=== PATIENT | female | born 1995 | race African-American/Black ===

== ENCOUNTER 2016-12-01 20:03 | Emergency (ER) | payer OTHER ==
[~2016-12-01] VITALS: Ht 160 cm; Wt 68.0 kg
[2016-12-01 20:05] VITALS: Ht 160 cm; Wt 68.0 kg
[2016-12-01] MEDS ORDERED: HYDROCODONE/APAP (5/325) TAB PO ONE (21:30)
[2016-12-01] MEDS ORDERED: IBUP800T25 PO (21:52)
[2016-12-01] MEDS ORDERED: AMO500 PO (21:52)
[2016-12-01] MEDS ORDERED: ACET500C5 PO (21:53)
--- NOTE | 2016-12-01 21:59 | ERD ---
ER Documentation Chief Complaint Date/Time DATE: 12/01/16 TIME: 21:56 Chief Complaint headache x 2 days HPI This is a 21-year-old female who presents the emergency department today complaining of headache, sore throat, body aches, fever for the past 2 days. States she took 2 Tylenol last night and one this morning. 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 Medications Home Meds Active Scripts Oseltamivir Phosphate* (Tamiflu*) 75 Mg Capsule, 75 MG PO BID for 5 Days, CAP Prov:MAGNUS CUEVAS-C 12/01/16 Acetaminophen* (Tylophen*) 500 Mg Capsule, 1 CAP PO Q6H Y for PAIN AND OR ELEVATED TEMP, #30 CAP Prov:MAGNUS CUEVASC 12/01/16 Ibuprofen* (Motrin*) 800 Mg Tab, 800 MG PO Q6, #30 TAB Prov:MAGNUS CUEVASC 12/01/16 Amoxicillin* (Amoxicillin*) 500 Mg Cap, 500 MG PO TID for 10 Days, CAP Prov:MAGNUS CUEVASC 12/01/16 Allergies Allergies: Coded Allergies: No Known Allergy (Unverified , 12/01/16) PMhx/Soc Medical and Surgical Hx: pt denies Medical Hx, pt denies Surgical Hx Hx Alcohol Use: No Hx Substance Use: No Hx Tobacco Use: No Smoking Status: Never smoker Physical Exam Vitals Vital Signs Date Time Temp Pulse Resp B/P Pulse Ox O2 Delivery O2 Flow Rate FiO2 12/01/16 20:05 100.8 116 20 127/73 97 Physical Exam Const: Nontoxic-appearing Head: Atraumatic Eyes: Right eye with conjunctival erythema. Left eye conjunctive clear ENT: Ears TMs normal. Nose no drainage. Throat with mild erythema and left- sided tonsillar exudate. Tenderness to palpation left side submandibular lymph node Neck: Full range of motion..~ No meningismus. Resp: Clear to auscultation bilaterally Cardio: Regular rate and rhythm, no murmurs Abd: Soft, non tender, non distended. Normal bowel sounds Skin: No petechiae or rashes Neur: Awake and alert Psych: Normal Mood and Affect Results 24 hrs Current Medications Medications (Trade) Dose Ordered Sig/Primitivo Route PRN Reason Start Time Stop Time Status Last Admin Dose Admin Acetaminophen/ Hydrocodone Bitart ([place] (5/325)) 1 tab ONCE ONCE PO 12/01/16 21:30 12/01/16 21:31 DC 12/01/16 21:22 Ibuprofen (Motrin) 800 mg ONCE ONCE PO 12/01/16 22:30 12/01/16 22:31 Procedures/MDM This a 21-year-old female who presents to the emergency department today with influenza-like symptoms. Patient had a temperature of 100.8 here in the emergency department. She was tachycardic. Her oxygen saturation is 97% she did not report a cough and I do not feel that she requires a chest x-ray at this time. On physical exam patient did have some tonsillar exudates and also reported some sore throat and therefore she may also have strep pharyngitis as well. 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 I have low suspicion for , peritonsillar abscess, retropharyngeal abscess, otitis media, PNA, sinusitis, abscess, meningitis, sepsis, or other acute infectious bacterial process. Patient had a low-grade temperature of 100.8 here in the emergency department. I did give her [place] for her headache as well as body aches. I will give her prescription for Tylenol, Motrin and amoxicillin for home to treat possible strep pharyngitis. I do not feel she requires further laboratory workup or imaging at this time. Patient will be given a prescription for Tamiflu. Patient is well-appearing. Patient indicated she was feeling much better than when she came into the emergency department At this time the patient is stable for discharge and outpatient management. They should follow up with their PCP in the next 1-2. They may return to the emergency department sooner if symptoms persist or worsen. Patient understood and agreed with the plan. Notified prior to discharge that patient's temperature had increased to 101 and she was therefore given Motrin prior to discharge Departure Diagnosis: Primary Impression: Flu-like symptoms Additional Impression: Sore throat Condition: Fair Patient Instructions: Influenza (Adult), Pharyngitis, Strep (Presumed) Additional Instructions: Call your primary care doctor TOMORROW for an appointment during the next 1-2 days.See the doctor sooner or return here if your condition worsens before your appointment time. Take Tylenol every 4 hours or Motrin every 6 hours for headache, fever, body aches Take antibiotics as prescribed Drink plenty of clear fluids and get plenty of rest MAGNUS CUEVAS PA-C Dec 01, 2016 21:59
[2016-12-01] MEDS ORDERED: OSLT75C PO (22:06)
[2016-12-01 22:09] VITALS: BP 108/72; PULSE 117; RESP 18; TEMP 101
[2016-12-01] MEDS ORDERED: IBUPROFEN 800 MG TAB PO ONE (22:30)
== END 2016-12-01 22:09 | disposition home or self-care (01) ==
LOC: FTE 20:03
DX: R51 Headache (principal); J02.9 Acute pharyngitis, unspecified; R50.9 Fever, unspecified; R00.0 Tachycardia, unspecified
CPT/HCPCS: Z7502; Z7610; 99284

== ENCOUNTER 2016-12-25 13:32 | Emergency (ER) | payer OTHER ==
[~2016-12-25] VITALS: Wt 69.0 kg
[~2016-12-25 13:32] MED LIST: ACET500C5 PO; AMO500 PO; IBUP800T25 PO; OSLT75C PO
[2016-12-25] MEDS ORDERED: GUAI-637 PO (14:07)
[2016-12-25] MEDS ORDERED: CETI10CA PO (14:08)
[2016-12-25] MEDS ORDERED: BENZ100C70 PO (14:08)
--- NOTE | 2016-12-25 14:15 | ERD ---
ER Documentation Chief Complaint Date/Time DATE: 12/25/16 TIME: 14:10 Chief Complaint sore throat and cough for the past few days. no distress no sob HPI Patient is a 21-year-old female who presents to the emergency department with sore throat and cough 3 days. Patient states that last night she had spaghetti for dinner. Patient states she feels as if the spaghetti noodle stuck in her throat. Patient states "it did not go down". She reports drinking water and eating bread following the initial symptoms of throat irritation. Patient is able to swallow without any difficulty currently. Patient reports eating breakfast without any difficulty. Patient is able to tolerate fluids without any difficulty currently. She does report a dry cough the last 3 days. Patient denies any chest pain or shortness of breath. Patient denies any nausea, vomiting, abdominal pain, ear pain. Patient does report some clear rhinorrhea and itchy eyes. She denies any recent travel. No sick contacts. ROS All systems reviewed and are negative except as per history of present illness. Medications Home Meds Active Scripts Cetirizine Hcl* (Zyrtec*) 10 Mg Capsule, 10 MG PO DAILY, #30 TAB.CHEW Prov:FREDY HUBBARD PA-C 12/25/16 Benzonatate* (Tessalon Perle*) 100 Mg Capsule, 100 MG PO Q8H Y for COUGH, #20 CAP Prov:FREDY HUBBARD PA-C 12/25/16 Guaifenesin* (Robitussin*) 100 Mg/5 Ml Syrup, 100 MG PO Q4H Y for COUGH, #1 BOT Prov:FREDY HUBBARD PA-C 12/25/16 Oseltamivir Phosphate* (Tamiflu*) 75 Mg Capsule, 75 MG PO BID for 5 Days, CAP Prov:MAGNUS CUEVAS-C 12/01/16 Acetaminophen* (Tylophen*) 500 Mg Capsule, 1 CAP PO Q6H Y for PAIN AND OR ELEVATED TEMP, #30 CAP Prov:MAGNUS CUEVAS-C 12/01/16 Ibuprofen* (Motrin*) 800 Mg Tab, 800 MG PO Q6, #30 TAB Prov:MAGNUS CUEVASC 12/01/16 Amoxicillin* (Amoxicillin*) 500 Mg Cap, 500 MG PO TID for 10 Days, CAP Prov:MAGNUS CUEVASZoie BAINS 12/01/16 Allergies Allergies: Coded Allergies: No Known Allergy (Unverified , 12/01/16) PMhx/Soc Hx Alcohol Use: No Hx Substance Use: No Hx Tobacco Use: No FmHx Family History: No diabetes Physical Exam Vitals Vital Signs Date Time Temp Pulse Resp B/P Pulse Ox O2 Delivery O2 Flow Rate FiO2 12/25/16 13:35 99.3 98 21 144/68 98 Physical Exam GENERAL: Well-developed, well-nourished female. Appears in no acute distress. Speaking in full sentences HEAD: Normocephalic, atraumatic. No deformities or ecchymosis. EYE: Pupils equal, round, and reactive to light. EOMs intact. No conjunctival erythema. No eye discharge. ENT: External ear without any masses or tenderness. Auditory canals clear bilaterally. TM visualized bilaterally, non-erythematous, non-bulging. Nasal mucosa pink with no discharge. Oropharynx is pink without any tonsillar erythema or exudates. No uvula deviation. No kissing tonsils. No throat swelling noted. No drooling noted. NECK: Supple. No meningismus. Normal ROM of the neck. No hyperextension of the neck. LUNG: Clear to auscultation bilaterally. No rhonchi, wheezing, rales or coarse breath sounds. HEART: Regular rate and rhythm. No murmurs, rubs or gallops. BACK: No midline tenderness. EXTREMITIES: Equal pulses bilaterally. No peripheral clubbing, cyanosis or edema. No unilateral leg swelling. NEUROLOGIC: Alert and oriented to person, place and time. Moving all four extremities. 5/5 strength in all extremities. Normal speech. Steady gait. SKIN: Normal color. Warm and dry. No rashes or lesions. Procedures/MDM MEDICAL DECISION MAKING: This is a 21-year-old female who presents with throat irritation and a cough 3 days. Patient states she felt as if spaghetti noodle was stuck in the back of her throat. Patient does report passage and swallowing of liquid and food this morning. Patient denies drooling, nausea, vomiting. Vital signs were reviewed. Patient was afebrile. Patient was not hypoxic. ENT exam was normal. Lung exam was normal. Given these findings, the patient's presentation is most consistent with viral URI and throat irritation. I have a much lower clinical concern for bacterial infections including pneumonia, meningitis, sinusitis, otitis externa, acute otitis media, strep pharyngitis, epiglottitis or peritonsillar abscess. Low suspicion for retained foreign body or airway obstruction given that patient is speaking in full sentences, has normal oxygenation saturations, and has no drooling. PRESCRIPTIONS: Robitussin, Tessalon Perles, Zyrtec DISCHARGE: At this time, patient is stable for discharge and outpatient management. I spoke with the patient regards to her current symptoms of foreign body sensation versus throat irritation. Advised the patient of her symptoms persist she may need to follow-up with an ENT specialist and/or GI specialist for possible endoscopy. Patient should see her primary care physician for referral. Supportive therapies such as OTC throat lozenges, salt water gurgles , popsicles and jello discussed. I have instructed the patient to follow-up with his/her primary care physician in 1-2 days. I have instructed the patient to promptly return to the ER for any new or worsening symptoms including increased pain, swelling, fever, nausea, vomiting, weakness or difficulty breathing. The patient and/or family expressed understanding of and agreement with this plan. All questions were answered. Home care instructions were provided. Departure Diagnosis: Primary Impression: URI (upper respiratory infection) URI type: unspecified URI Qualified Code: J06.9 - Upper respiratory tract infection, unspecified type Additional Impression: Throat irritation Condition: Stable Patient Instructions: Preventing Common Respiratory Infections Referrals: ROXANNE ELLIOTT MD,RICK MAHONEY MD, M.D., ALI R MD Additional Instructions: Call your primary care doctor TOMORROW for an appointment during the next 1-2 days.See the doctor sooner or return here if your condition worsens before your appointment time. Unable to rule out any retained food. Patient advised that if her symptoms persist she may need to follow-up with the ENT specialist and/or GI specialist for possible endoscopy. FREDY HUBBARD PA-C December 25, 2016 14:15
== END 2016-12-25 14:28 | disposition home or self-care (01) ==
LOC: FTE 13:32
DX: J06.9 Acute upper respiratory infection, unspecified (principal)
CPT/HCPCS: 99283